=== PATIENT | male | born 1985 | race Caucasian/White ===

== ENCOUNTER 2017-09-17 09:26 | Emergency (ER) | payer OTHER ==
--- NOTE | 2017-09-17 10:16 | ED ---
General Adult HPI - General Chief complaint: Recheck/Abnormal Lab/Rx Stated complaint: HEP C TREATMENT Time Seen by Provider: 09/17/17 10:03 Source: patient, RN notes reviewed Mode of arrival: ambulatory Limitations: no limitations - History of Present Illness Initial comments: 32-year-old male presents for desire treatment of hepatitis C. Patient was diagnosed with hepatitis C in March 2016. He was lost to outpatient follow- up. Patient states he was just released from [facility] and is hoping to be treated for his hepatitis. He's had no related symptoms. No nausea vomiting. No abdominal pain. No diarrhea. No fever or chills. No jaundice or discoloration of the skin. No itching. Patient is otherwise healthy. - Related Data Home Medications Medication Instructions Recorded Confirmed No Known Home Medications [No 03/23/16 09/17/17 Known Home Medications] Allergies Allergy/AdvReac Type Severity Reaction Status Date / Time No Known Allergies Allergy Verified 09/17/17 09:55 Review of Systems ROS Statement: Those systems with pertinent positive or pertinent negative responses have been documented in the HPI. ROS Other: All systems not noted in ROS Statement are negative. Past Medical History Additional Past Medical History / Comment(s): ADD, hep c History of Any Multi-Drug Resistant Organisms: None Reported Past Surgical History: No Surgical Hx Reported Past Psychological History: ADD/ADHD Smoking Status: Current every day smoker Past Alcohol Use History: Heavy Past Drug Use History: Cocaine, Heroin, Prescription Drug Abuse General Exam Limitations: no limitations General appearance: alert, in no apparent distress Head exam: Present: atraumatic, normocephalic Eye exam: Present: normal appearance, PERRL, EOMI. Absent: scleral icterus ENT exam: Present: normal exam Neck exam: Present: normal inspection. Absent: tenderness, meningismus Respiratory exam: Present: normal lung sounds bilaterally. Absent: respiratory distress, wheezes Cardiovascular Exam: Present: regular rate, normal rhythm GI/Abdominal exam: Present: soft. Absent: distended, tenderness, guarding, rebound Neurological exam: Present: alert, oriented X3, CN II-XII intact. Absent: motor sensory deficit Psychiatric exam: Present: normal affect, normal mood Skin exam: Present: warm, dry, intact. Absent: cyanosis, diaphoretic Course Vital Signs 09/17/17 09:41 Temperature 98.7 F Pulse Rate 81 Respiratory 18 Rate Blood Pressure 130/80 O2 Sat by Pulse 98 Oximetry Medical Decision Making - Medical Decision Making 32-year-old male seeking evaluation for diagnosis of hepatitis made approximately 2 years ago. Patient is asymptomatic, he is not jaundice, he's had no abdominal pain, no vomiting diarrhea or fever. Patient will be given outpatient gastroenterology follow-up. He will return with development of any concerning symptoms. Patient is comfortable with this plan. Disposition Clinical Impression: Hepatitis C antibody test positive Disposition: HOME SELF-CARE Condition: Good Instructions: Hepatitis C (ED) Referrals: None,Stated [Primary Care Provider] - 1-2 days Kei Junior MD [STAFF PHYSICIAN] - 1-2 days Time of Disposition: 10:18
[2017-09-17 11:43] VITALS: BP 139/74; PULSE 69; RESP 16; TEMP 97.4
== END 2017-09-17 11:46 | disposition home or self-care (01) ==
LOC: EC 09:26
DX: B19.20 Unspecified viral hepatitis C without hepatic coma (principal); F17.200 Nicotine dependence, unspecified, uncomplicated
CPT/HCPCS: 99283

== ENCOUNTER → 2018-01-11 | Outpatient (CLI) | payer OTHER ==
[2018-01-12 14:42] LABS: Hepatits C Virus RNA DETECTED (Not detected); LOG HCV IU/mL 5.98 (<1.08)
== END | disposition home or self-care (01) ==
LOC: LABWHC1 10:47
PROVIDERS: ATTEND Internal Medicine
DX: B19.20 Unspecified viral hepatitis C without hepatic coma (principal)
CPT/HCPCS: 36415; 87522

== ENCOUNTER → 2020-04-22 | Outpatient (CLI) | payer OTHER ==
[2020-04-22 17:17] LABS: Basophils # (A) 0.1 k/uL (0-0.2); Basophils % (A) 1 %; Eosinophils # (A) 0.6 k/uL (0-0.7); Eosinophils % (A) 7 %; HCT 46.5 % (39.0-53.0); HGB 15.1 gm/dL (13.0-17.5); Lymphocytes # (A) 2.7 k/uL (1.0-4.8); Lymphocytes % (A) 33 %; MCH 29.9 pg (25.0-35.0); MCHC 32.6 g/dL (31.0-37.0); MCV 91.9 fL (80.0-100.0); Monocytes # (A) 0.6 k/uL (0-1.0); Monocytes % (A) 7 %; Neutrophils % (A) 49 %; Platelet Count 226 k/uL (150-450); RBC 5.06 m/uL (4.30-5.90); RDW 12.5 % (11.5-15.5); WBC 8.1 k/uL (3.8-10.6)
[2020-04-23 02:14] LABS: ALT 27 U/L (10-49); AST 32 U/L (14-35); African American GFR (CKD) 81.4 (60.0-200.0); Albumin/Globulin Ratio 1.92 (1.60-3.17); Alkaline Phosphatase 104 U/L (41-126); BUN/Creat Ratio 16.92 Ratio (12.00-20.00); Bilirubin, Conjugated <0.20 mg/dL (0.20-0.40); Calcium 9.5 mg/dL (8.7-10.3); Carbon Dioxide 24.6 mmol/L (21.6-31.8); Chloride 108 mmol/L (96-109); Globulin 2.5 g/dL (1.6-3.3); Glucose 90 mg/dL (70-110); Non-African American GFR(CKD) 70.2 (60.0-200.0); Potassium 4.9 mmol/L (3.5-5.5); Sodium 141 mmol/L (135-145); Total Bilirubin 0.3 mg/dL (0.3-1.2); Total Protein 7.3 g/dL (6.2-8.2)
== END | disposition home or self-care (01) ==
LOC: LABWHC1 15:57
PROVIDERS: ATTEND Internal Medicine Infectious Disease
DX: B19.20 Unspecified viral hepatitis C without hepatic coma (principal)
CPT/HCPCS: 36415; 80048; 80076; 85025; 87522

== ENCOUNTER 2023-01-10 12:15 | Emergency (ER) | payer OTHER ==
[2023-01-10 12:35] VITALS: TEMP 92.3
--- NOTE | 2023-01-10 13:24 | ED ---
General Adult HPI - General Chief complaint: Urogenital Stated complaint: male Time Seen by Provider: 01/10/23 12:50 Source: patient Mode of arrival: ambulatory Limitations: no limitations - History of Present Illness Initial comments: This is a 37-year-old male with a past medical history including previous substance abuse presents emergency department for left testicular pain and swelling. The patient stated this pain and swelling is been present over the last 1 month and did state that he feels that there is worsening over the last several weeks. The patient denied any acute change but stated that the pain and pressure in his left testicle became so great that he came to the emergency department for evaluation. The patient did state that he had trauma to the left testicle several months ago but he did state that this healed spontaneously. The patient stated that he noted pain and swelling over the superior aspect of the left testicle. The patient denied any unprotected sexual intercourse as well as any penile discharge or dysuria. The patient was otherwise resting in bed comfortably without any fevers or chills. - Related Data Home Medications Medication Instructions Recorded Confirmed No Known Home Medications 03/23/16 09/17/17 Allergies Allergy/AdvReac Type Severity Reaction Status Date / Time No Known Allergies Allergy Verified 01/10/23 12:32 Review of Systems ROS Statement: Those systems with pertinent positive or pertinent negative responses have been documented in the HPI. ROS Other: All systems not noted in ROS Statement are negative. Past Medical History Additional Past Medical History / Comment(s): ADD, hep c History of Any Multi-Drug Resistant Organisms: None Reported Past Surgical History: No Surgical Hx Reported Past Psychological History: ADD/ADHD Smoking Status: Former smoker Past Alcohol Use History: Heavy Past Drug Use History: Cocaine, Heroin, Prescription Drug Abuse General Exam Limitations: no limitations General appearance: alert, in no apparent distress Head exam: Present: atraumatic, normocephalic, normal inspection Eye exam: Present: normal appearance, PERRL Pupils: Present: normal accommodation ENT exam: Present: normal exam, normal oropharynx, mucous membranes moist Neck exam: Present: normal inspection, full ROM Respiratory exam: Present: normal lung sounds bilaterally Cardiovascular Exam: Present: regular rate, normal rhythm, normal heart sounds GI/Abdominal exam: Present: soft, normal bowel sounds exam: Present: normal inspection, testicular tenderness (Minor TTP over the superior aspect of the left testicle). Absent: urethral discharge, scrotal swelling Extremities exam: Present: normal inspection, full ROM Back exam: Present: normal inspection, full ROM Neurological exam: Present: alert, oriented X3, CN II-XII intact Psychiatric exam: Present: normal affect, normal mood Skin exam: Present: warm, dry Course Vital Signs 01/10/23 01/10/23 12:32 12:34 Temperature 92.3 F L Pulse Rate 79 68 Respiratory 18 16 Rate Blood Pressure 152/91 140/80 O2 Sat by Pulse 99 98 Oximetry Medical Decision Making - Medical Decision Making Was pt. sent in by a medical professional or institution (, [facility], CENTRAL MELT SPECIALIST, urgent care, hospital, or custodial...) When possible be specific @ -No Did you speak to anyone other than the patient for history (EMS, parent, family, police, friend...)? What history was obtained from this source @ -No Did you review nursing and triage notes (agree or disagree)? Why? @ -I reviewed and agree with nursing and triage notes Were old charts reviewed (outside hosp., previous admission, EMS record, old EKG, old radiological studies, urgent care reports/EKG's, custodial records)? Report findings @ -No old charts were reviewed Differential Diagnosis (chest pain, altered mental status, abdominal pain women, abdominal pain men, vaginal bleeding, weakness, fever, dyspnea, syncope, headache, dizziness, GI bleed, back pain, seizure, CVA, palpatations, mental health)? @ -Testicular torsion, testicular cyst, epididymitis EKG interpreted by me (3pts min.). @ -None X-rays interpreted by me (1pt min.). @ -None done CT interpreted by me (1pt min.). @ -None done U/S interpreted by me (1pt. min.). @ -Ultrasound was obtained and was interpreted by myself showing epididymal cysts What testing was considered but not performed or refused? (CT, X-rays, U/S, labs)? Why? @ -None What meds were considered but not given or refused? Why? @ -None Did you discuss the management of the patient with other professionals (professionals i.e. [facility] Hightower, CEN[employer]AL MELT SPECIALIST, lab, RT, psych nurse, director social service, bilingual elementary school teacher, teacher, combat information center officer, telephonic case manager)? Give summary @ -No Was smoking cessation discussed for >3mins.? @ -No Was critical care preformed (if so, how long)? @ -No Were there social determinants of health that impacted care today? How? (Homelessness, low income, unemployed, alcoholism, drug addiction, transportation, low edu. Level, literacy, decrease access to med. care, [facility] [facility], rehab)? @ -No Was there de-escalation of care discussed even if they declined (Discuss DNR or withdrawal of care, Hospice)? DNR status @ -No What co-morbidities impacted this encounter? (DM, HTN, Smoking, COPD, CAD, Cancer, CVA, ARF, Chemo, Hep., AIDS, mental health diagnosis, sleep apnea, morbid obesity)? @ -Previous polysubstance abuse Was patient admitted / discharged? Hospital course, mention meds given and route, prescriptions, significant lab abnormalities, going to OR and other pertinent info. @ -The patient was seen and evaluated emergency department. Physical exam, the patient was resting in bed without any acute distress. Vital signs admission were stable. Due to the nature of the patient's complaints, an ultrasound of the scrotum was obtained. Ultrasound was obtained and the read was above showing epididymal cysts. The patient on reevaluation was resting in bed comfortably without any further acute distress or pain. Due to these findings, the patient was stable for discharge home and was given a follow-up for urology. The patient was agreeable with this plan and was discharged home in stable condition. Undiagnosed new problem with uncertain prognosis? @ -No Drug Therapy requiring intensive monitoring for toxicity (Heparin, Nitro, Insulin, Cardizem)? @ -No Were any procedures done? @ -No Diagnosis/symptom? @ -Epididymal cyst Acute, or Chronic, or Acute on Chronic? @ -Chronic Uncomplicated (without systemic symptoms) or Complicated (systemic symptoms)? @ -Uncomplicated Side effects of treatment? @ -No Exacerbation, Progression, or Severe Exacerbation? @ -No Poses a threat to life or bodily function? How? (Chest pain, [place], VT, pneumonia, PE, COPD, DKA, ARF, appy, cholecystitis, CVA, Diverticulitis, Homicidal, Suicidal, threat to staff... and all critical care pts) @ -No Disposition Clinical Impression: Epididymal cyst Disposition: HOME SELF-CARE Condition: Stable Instructions (If sedation given, give patient instructions): Scrotal Pain (ED) Is patient prescribed a controlled substance at d/c from ED?: No Referrals: None,Stated [Primary Care Provider] - 1-2 days Dada Hatfield MD [STAFF PHYSICIAN] - 1-2 days Time of Disposition: 14:00
--- NOTE | 2023-01-10 14:08 | US ---
EXAMINATION TYPE: US scrotum with doppler. Grayscale and color Doppler Duplex imaging performed of camilo merritt scrotum. DATE OF EXAM: 01/10/2023 COMPARISON: NONE CLINICAL INDICATION: Male, 37 years old with history of Left testicular swelling, pain; Left teste pa in. No injury. Patient states swelling comes and goes. EXAM MEASUREMENTS: TESTICLES: Right Testicle: 4.7 x 3.8 x 2.6 cm Left Testicle: 4.4 x 3.5 x 2.4 cm EPIDIDYMIS HEAD: Right Epididymis: 1.4 x 1.3 x 0.8 cm Left Epididymis: 1.0 x 1.1 x 1.2 cm Doppler performed to assess for testicular vascularity; good bilateral color flow and waveforms are s een. There is no evidence of testicular torsion. Presence of hydroceles: Bilateral Presence of varicoceles: No Left teste head simple cyst - 0.7 x 0.7 x 0.6 cm. Left teste head complex cyst - 0.3 x 0.4 x 0.3 cm. IMPRESSION: 1. Epididymal cysts.
[2023-01-10 14:51] VITALS: BP 130/68; PULSE 80; RESP 20
== END 2023-01-10 14:51 | disposition home or self-care (01) ==
LOC: EC 12:15
DX: N50.3 Cyst of epididymis (principal); N43.3 Hydrocele, unspecified; F14.90 Cocaine use, unspecified, uncomplicated; Z87.891 Personal history of nicotine dependence
CPT/HCPCS: 76870; 93975; 99283